=== PATIENT | male | born 1995 | race Two or more races ===

== ENCOUNTER 2020-01-13 18:10 | Observation (INO) | payer OTHER, SELFPAY ==
--- NOTE | ~2020-01-13 | CT_ITS ---
EXAMINATION: CT abdomen pelvis w con INDICATION: Abdominal pain and nausea TECHNIQUE: Computed tomographic images of the abdomen and pelvis were obtained after the administrati on of 100 cc of Omnipaque 350 intravenous contrast. The dose-length product (DLP) was 606.68 mGy-cm. Automated exposure control and iterative reconstruction technique were employed. COMPARISON: None available FINDINGS: The lung bases are clear. The heart size is normal. The liver, spleen, pancreas, gallbladde r, and adrenal glands are normal. The kidneys are unremarkable. The dilated appendix measures up to 1 0 mm. There is subtle edematous stranding of the periappendiceal fat. No pathologically enlarged abdo frances or pelvic lymph nodes are identified. There is no free intraperitoneal gas or evidence of bowel obstruction. There is a small volume of pelvic ascites. IMPRESSION: 1. Dilated appendix with subtle edematous stranding of the periappendiceal fat, likely early acute ap pendicitis. Recommend correlation for right lower quadrant tenderness. Reviewed, dictated and finalized at location A. IMPRESSION: 1. Dilated appendix with subtle edematous stranding of the periappendiceal fat, likely early acute appendicitis. Recommend correlation for right lower quadran t tenderness.
[2020-01-13 18:12] VITALS: BP 129/63; PULSE 89; RESP 18; TEMP 36.8; O2SAT 99
--- NOTE | 2020-01-13 18:29 | PC.NURSE ---
Pt states he had heartburn yesterday and today has had epigastric pain that pt describes as burning and squeezing sensation. Pt denied any change in pain with food and drink. Pt states he had some nausea today, denies any emesis. Denies any diarrhea. Pt had a BM today that was normal. Pt tender on exam in RLQ. Pt was at urgent care today and had GI cocktail and Famotidine given without any improvement in pain.
--- NOTE | 2020-01-13 18:29 | ED.ABDPAIN ---
HPI - Abdominal Pain General Chief Complaint: Abdominal Pain Stated Complaint: abd pain Time Seen by Provider: 01/13/20 18:22 Source: patient and RN notes reviewed Mode of arrival: ambulatory Limitations: no limitations History of Present Illness HPI narrative: Pt is a 24 y/o male who presents to the ED with c/o intermittent epigastric pain starting last night. He notes that he developed a burning pain in his epigastric region shortly after eating pizza for dinner last night. Pt notes that his pain later resolved, but states that it returned after eating a salad with cheese and tomatoes earlier today. He notes that he was evaluated at an urgent care facility for his symptoms this afternoon, but states that he wasn't satisfied with his care. Pt currently describes his pain as burning/squeezing. He reports nausea accompanying his pain, but denies any vomiting, fever, or back pain. Pt states that his last BM was around 15:00 this afternoon. MD elicited complaint: abdominal pain Onset (ago): day(s) (1) Pain Consistency: intermittent Location: epigastric Quality: burning and other (squeezing) Radiation: none Associated symptoms: nausea Related Data Home Medications Medication Instructions Recorded Confirmed No Home Medications 01/13/20 01/13/20 Allergies Allergy/AdvReac Type Severity Reaction Status Date / Time No Known Allergies Allergy Verified 01/13/20 21:50 Review of Systems Review of Systems: All systems reviewed & are unremarkable except as noted in HPI and below Constitutional: Constitutional: Denies fever(s) Gastrointestinal: Gastrointestinal: Reports abdominal pain (epigastric pain), Reports nausea and Denies vomiting Musculoskeletal: Musculoskeletal: Denies back pain PMFSH Past Medical History Medical History Healthy adult male Surgical History Surgical History (Updated 01/13/20 @ 18:41 by Rishi Murcia) No significant past surgical history Family History Family History (Updated 01/13/20 @ 21:50 by Marleen Lopes RN) Mother Asthma Social History Social History Years smoked: 11 Smoking status: Current every day smoker Tobacco type: cigarettes Alcohol intake: never Substance use: never Spiritual care concerns: No Agree to blood products: Yes Exam Narrative: Exam Narrative: GENERAL: Well-appearing, well-nourished, and in no acute distress. HEAD: Normocephalic, atraumatic EYES: PERRLA and EOMI, conjunctiva clear without discharge THROAT:Mucous membranes moist, Oropharynx normal without erythema, exudate, peritonsillar swelling or fluctuance NECK: Supple, without lymphadenopathy or mass RESPIRATORY: No respiratory distress, Airway patent, Respirations non-labored, Clear to auscultation without rales, rhonchi or wheeze HEART: Regular rate and rhythm. No murmur heard. Normal peripheral pulses. ABDOMEN: Soft, right lower abdominal tenderness, nondistended, normal active bowel sounds. No masses. No rebound or guarding, No organomegaly. EXTREMITIES: No edema, normal strength with full range of motion. SKIN: Warm, dry, normal color without rash NEURO: Alert and oriented x3. CN 2-12 grossly intact. No focal deficits. PSYCH: Normal mood and affect. Course Reevaluation(s) Reevaluation #1: I Discussed with patient his diagnosis of acute appendicitis and he understands he will be admitted with IV antibiotics and he will be seen by surgeon tomorrow. Date: 01/13/20 Time: 20:43 Consultations Consultation #1: Discussed case with general surgeon, Dr. Dolan. Advised to place the pt on Zosyn, analgesics, and he will see the pt tomorrow morning. Date: 01/13/20 Time: 20:27 Vital Signs Vital signs: Vital Signs Temperature 98.3 F 01/13/20 18:12 Pulse Rate 89 01/13/20 18:12 Respiratory Rate 18 01/13/20 18:12 Blood Pressure 129/63 01/13/20 18:12 Pulse Oximetry 99
[2020-01-13] MEDS: ONDANSETRON INJ 4 MG/2 ML VIAL IV PUSH (18:44)
[2020-01-13 18:49] VITALS: BP 128/82; PULSE 73; RESP 18; O2SAT 98
[2020-01-13 18:49] LABS: Basophils Percent Auto 0.2 % (0.2-1.2); Eosinophils Percent Auto 0.1 % (0-4.4); Hematocrit 41.1 % (42.0-52.0); Immature Granulocyte Absolute 0.05 K/mm3 (0.00-0.031); Immature Granulocyte Percent A 0.4 % (0-0.5); Lymphocytes Absolute Auto 0.87 K/mm3 (0.9-3.2); Lymphocytes Percent Auto 6.6 % (18.3-44.2); Mean Corpuscular HGB Conc 34.1 g/dl (32-36); Mean Corpuscular Hemoglobin 27.2 pg (26-34); Mean Corpuscular Volume 79.8 fl (80-100); Mean Platelet Volume 10.1 fl (7.4-10.4); Monocytes Absolute Auto 0.4 K/mm3 (0.1-0.6); Monocytes Percent Auto 2.9 % (2.6-8.5); Neutrophils Absolute Auto 11.9 K/mm3 (1.3-6.7); Neutrophils Percent Auto 89.8 % (45.5-73.1); Platelet Count Result 199 k/mm3 (150-375); Red Blood Count 5.15 M/mm3 (4.6-6.20); Red Cell Distribution Width 12.6 % (11.5-14.5); White Blood Count 13.2 K/mm3 (4.5-10.0)
[2020-01-13] MEDS: LACTATED RINGERS 1,000 ML 999 ML IV CONT (19:04)
[2020-01-13 19:08] LABS: Add Urine Microscopic? YES; Appearance Urine Clear (Clear); Bilirubin Urine Negative (Negative); Blood Urine 1+ (Negative); Color Urine Straw (Yellow); Glucose Urine UA Negative (Negative); Ketones Urine Negative (Negative); Leukocyte Esterase Ur Negative LEU/UL (Negative); Mucus Urine Rare /lpf; Nitrate Urine Negative (Negative); Protein Urine Negative (Negative); RBC Urine 0-2 /hpf (0-2); Specific Grav Ur 1.013 (1.001-1.035); Urobilinogen Urine Negative mg/dL (<2.0); WBC Urine 0-3 /hpf
[2020-01-13 19:25] LABS: Alanine Aminotransferase 24 U/L (4-50); Albumin Level 4.3 g/dL (3.5-5.1); Alkaline Phosphatase 48 U/L (38-126); Aspartate Amino Transferase 29 U/L (17-59); Bilirubin,Total 0.5 mg/dL (0.2-1.3); Blood Urea Nitrogen 10 mg/dL (9-20); Carbon Dioxide 29 mmol/L (22-30); Chloride 99 mmol/L (98-107); Estimated CRCL calculation 179 ml/min; Estimated Glomerular Filt Rate > 60; Glucose 123 mg/dL (75-110); Lipase 30 U/L (23-300); Potassium 3.8 mmol/L (3.4-5.0); Sodium 132 mmol/L (137-145)
[2020-01-13 20:04] VITALS: BP 126/72; PULSE 82; RESP 18; O2SAT 99
[2020-01-13 20:47] VITALS: BP 127/75; PULSE 85; RESP 16; TEMP 36.6; O2SAT 99
[2020-01-13 21:00] VITALS: BP 121/69; PULSE 73; RESP 16; TEMP 36.6; O2SAT 98
--- NOTE | 2020-01-13 21:00 | ADMGEN ---
This patient, Isidoro Ramírez, was admitted to 3 [facility] Surg Room 307-01. Patient/family oriented to hospital policies and general routines including ID bracelet, bed and alarms, visiting hours, pain management, procedures, bathroom and other care routines, personal items, smoking policy, room service/diet, and visiting hours. Valuables list has been completed. Information on how to activate the Rapid Response Team has been discussed. Patient/Family are encouraged to report perceived risks to care and to ask questions if they do not understand what they are told or what they should do.
[2020-01-13 21:15] VITALS: BMI 28.0
[2020-01-13] MEDS: LACTATED RINGERS 1,000 ML 125 ML IV CONT (21:21)
[2020-01-14] MEDS: LACTATED RINGERS 1,000 ML 125 ML IV CONT (05:33)
[2020-01-14 06:00] VITALS: BP 101/54; PULSE 70; RESP 16; TEMP 37; O2SAT 99
[2020-01-14 06:38] LABS: Basophils Percent Auto 0.2 % (0.2-1.2); Eosinophils Absolute Auto 0.1 K/mm3 (0-0.3); Hematocrit 40.4 % (42.0-52.0); Hemoglobin 13.4 g/dL (14.0-18.0); Immature Granulocyte Absolute 0.03 K/mm3 (0.00-0.031); Immature Granulocyte Percent A 0.4 % (0-0.5); Lymphocytes Absolute Auto 2.28 K/mm3 (0.9-3.2); Lymphocytes Percent Auto 27.1 % (18.3-44.2); Mean Corpuscular HGB Conc 33.2 g/dl (32-36); Mean Corpuscular Hemoglobin 27.1 pg (26-34); Mean Corpuscular Volume 81.6 fl (80-100); Mean Platelet Volume 10.2 fl (7.4-10.4); Monocytes Absolute Auto 0.6 K/mm3 (0.1-0.6); Neutrophils Absolute Auto 5.4 K/mm3 (1.3-6.7); Neutrophils Percent Auto 64.3 % (45.5-73.1); Platelet Count Result 195 k/mm3 (150-375); Red Blood Count 4.95 M/mm3 (4.6-6.20); Red Cell Distribution Width 12.6 % (11.5-14.5); White Blood Count 8.4 K/mm3 (4.5-10.0)
[2020-01-14 06:48] LABS: Alanine Aminotransferase 22 U/L (4-50); Albumin Level 3.8 g/dL (3.5-5.1); Alkaline Phosphatase 45 U/L (38-126); Aspartate Amino Transferase 25 U/L (17-59); Bilirubin,Total 0.6 mg/dL (0.2-1.3); Blood Urea Nitrogen 8 mg/dL (9-20); Calcium 8.6 mg/dL (8.4-10.2); Carbon Dioxide 31 mmol/L (22-30); Chloride 102 mmol/L (98-107); Estimated CRCL calculation 156 ml/min; Estimated Glomerular Filt Rate > 60; Glucose 87 mg/dL (75-110); Potassium 3.6 mmol/L (3.4-5.0); Sodium 139 mmol/L (137-145)
--- NOTE | 2020-01-14 08:30 | PM.IMHP ---
H&P: HPI History of Present Illness Chief complaint: acute appendicitis Narrative: Isidoro Ramírez is a 24 year old male who noticed some heartburn after eating pizza the night before last. This went away but then yesterday morning he had a salad with some cheese and noticed some epigastric and hypogastric abdominal pain. This did not go away. He went to an urgent care and was told he had indigestion. His pain however got worse and moved to more of the central abdomen and lower than before. He went to the emergency room where he was [place] [id number]. He was tender in the right lower quadrant. He had a CT scan of the abdomen and pelvis that showed a 10 mm appendix with some periappendiceal stranding consistent with early acute appendicitis. The patient is been admitted and started on IV Zosyn antibiotics. He has been getting some analgesics. He does feel better this morning but still has intermittent pain now in the right lower quadrant with tenderness there. He has had no nausea or vomiting. Review of Systems Review of Systems: All systems reviewed & are unremarkable except as noted in HPI and below Constitutional: Constitutional: Denies headache(s) ENT: Denies headache(s) Cardiovascular: Cardiovascular: Denies chest pain and Denies dyspnea Respiratory: Respiratory: Denies cough and Denies dyspnea Gastrointestinal: Gastrointestinal: Reports as per HPI Neurologic: Denies confusion and Denies headache(s) Psychiatric: Psychiatric: Denies confusion [facility] Past Medical History Medical History Healthy adult male Surgical History Surgical History No significant past surgical history Family History Family History Mother Asthma Social History Social History Years smoked: 11 Smoking status: Current every day smoker Tobacco type: cigarettes Alcohol intake: never Substance use: never Spiritual care concerns: No Agree to blood products: Yes Meds Home Medications and Allergies Home Medications Medication Instructions Recorded Confirmed Type No Home Medications 01/13/20 01/13/20 History Allergies Allergy/AdvReac Type Severity Reaction Status Date / Time No Known Allergies Allergy Verified 01/13/20 21:50 Vital Signs Vital Signs - 24 hr 01/13/20 18:12 01/13/20 18:49 01/13/20 20:04 Temperature 36.8 C Pulse Rate 89 73 82 Respiratory Rate 18 18 18 Blood Pressure 129/63 128/82 126/72 Pulse Oximetry 99 98 99 01/13/20 20:47 01/13/20 21:00 01/14/20 06:00 Temperature 36.6 C 36.6 C 37.0 C Pulse Rate 85 73 70 Respiratory Rate 16 16 16 Blood Pressure 127/75 121/69 101/54 L Pulse Oximetry 99 98 99 Exam Const: General: cooperative, comfortable, no acute distress, alert and awake; No confusion Orientation/consciousness: No confusion HENMT: Head: normocephalic, atraumatic, no contusions and no scalp lesions Ears: external ears normal General nose exam: Normal external nose present Face and sinus: face symmetric and dry mucous membranes Mouth: Yes Normal oral and palatal mucosa present and Yes tongue normal Throat: posterior oropharynx normal Eyes: Conjunctivae: conjunctivae normal Sclera: sclerae normal Pupils: Equal, round and reactive pupils present EOM: EOMs intact bilaterally Neck: Neck: normal visual inspection, no lymphadenopathy, trachea midline, supple, nontender and no JVD Thyroid: abnormal thyroid Resp: Effort & Inspection: normal respiratory effort Auscultation: clear to auscultation bilaterally Cardio: Rate: regular rate Rhythm: regular rhythm GI: Inspection: normal to inspection, non-distended and no incisions GI Palp: Yes Soft to palpation, Yes Tenderness to palpation present (GI) (Right lower quadrant ov
--- NOTE | 2020-01-14 08:34 | PM.PROC ---
Procedure Note - Detailed Date of procedure: 01/14/20 Pre-op diagnosis: acute appendicitis acute appendicitis Post-op diagnosis: same Procedure performed: Laparoscopic appendectomy Description of procedure: The patient was taken to surgery and induced into general anesthesia. The abdomen was prepped and draped. Trocars were placed in the usual fashion using 0.5% Marcaine with epinephrine and applied Medical optical trocars. A 5 mm camera was used. The patient was placed in Trendelenburg with the right side elevated. The appendix was found and was elevated anteriorly. Dissection was carried out in the mesoappendix. The mesoappendix was dissectedand the appendiceal vessels cauterized for hemostasis. Eventually the base of the appendix was skeletonized. The appendix was ligated at its base with a Vicryl endo-loop. It was amputated just above the ligature and the mucosa of the appendiceal stump was cauterized. The appendix was immediately placed in an Endo-Catch bag and retrieved through the 10 11 left lower quadrant trocar site. We replaced the 10 11 trocar and reviewed the right lower quadrant and areas of dissection. All looked good with no evidence of bleeding or other problems. We evacuated CO2 and removed the trocar sleeves. Skin wounds were closed with subcuticular 4 O Monocryl skin suture. The wounds were dressed with Exofin surgical adhesive. The patient was awakened and taken to recovery in good condition. Sponge and needle counts were correct x2. Anesthesia: GETA and local (0.5% Marcaine with epinephrine) Surgeon: Hi Dolan MD Physical Therapy Assistant Instructor: Candi REES Estimated blood loss (mL): 5 Drains: No Packing: No Pathology: yes (Appendix) Complications: None Condition: stable Disposition: PACU Findings: Acute non perforated appendicitis
--- NOTE | 2020-01-14 09:13 | WPDANESEPPF ---
Anes - Initial Pre Proc Eval Procedure: Operation Date: 01/14/20 09:00 Proposed Procedures p Laparoscopic Appendectomy - Hi Dolan MD Date/Time: 01/14/20 09:13 Surgeon: Hi Dolan MD Pre Op Diagnosis: acute appendicitis Patient Data Age: 24 Gender: M Height: 6 ft 1 in Weight: 96.3 kg Last Vital Signs Temp 37.0 C 01/14/20 06:00 Pulse 70 01/14/20 06:00 Resp 16 01/14/20 06:00 BP 101/54 L 01/14/20 06:00 Pulse Ox 99 01/14/20 06:00 Allergies Allergy/AdvReac Type Severity Reaction Status Date / Time No Known Allergies Allergy Verified 01/13/20 21:50 Home Medications Medication Instructions Recorded Confirmed Type No Home Medications 01/13/20 01/13/20 History hydrocodone-acetaminophen 1 - 2 tablet PO Q6H PRN #7 tablet 01/14/20 Rx Laboratory Tests 01/13/20 01/13/20 01/13/20 18:40 18:41 19:05 WBC 13.2 K/mm3 H K/mm3 (4.5-10.0) RBC 5.15 M/mm3 M/mm3 (4.6-6.20) Hgb 14.0 g/dL g/dL (14.0-18.0) Hct 41.1 % L % (42.0-52.0) MCV 79.8 fl L fl (80-100) MCH 27.2 pg pg (26-34) MCHC 34.1 g/dl g/dl (32-36) RDW 12.6 % % (11.5-14.5) Plt Count 199 k/mm3 k/mm3 (150-375) MPV 10.1 fl fl (7.4-10.4) Immature Gran % (Auto) 0.4 % % (0-0.5) Neut % (Auto) 89.8 % H % (45.5-73.1) Lymph % (Auto) 6.6 % L % (18.3-44.2) [place] % (Auto) 2.9 % % (2.6-8.5) Eos % (Auto) 0.1 % % (0-4.4) Baso % (Auto) 0.2 % % (0.2-1.2) Lymph # (Auto) 0.87 K/mm3 L K/mm3 (0.9-3.2) [place] # (Auto) 0.4 K/mm3 K/mm3 (0.1-0.6) Eos # (Auto) 0.0 K/mm3 K/mm3 (0-0.3) Baso # (Auto) 0.0 K/mm3 K/mm3 (0.0-0.1) Abs Immat Gran (auto) 0.05 K/mm3 H K/mm3 (0.00-0.031) Absolute Neuts (auto) 11.9 K/mm3 H K/mm3 (1.3-6.7) Absolute Nucleated RBC 0.0 K/mm3 K/mm3 (0.0-0.012) Nucleated RBC % 0.0 % % (0.0-0.2) Sodium 132 mmol/L L mmol/L (137-145) Potassium 3.8 mmol/L mmol/L (3.4-5.0) Chloride 99 mmol/L mmol/L (98-107) Carbon Dioxide 29 mmol/L mmol/L (22-30) BUN 10 mg/dL mg/dL (9-20) Creatinine 0.60 mg/dL L mg/dL (0.7-1.3) Estim Creat Clear Calc 179 ml/min ml/min Estimated GFR > 60 (59 - ) Glucose 123 mg/dL H mg/dL (75-110) Calcium 9.0 mg/dL mg/dL (8.4-10.2) Total Bilirubin 0.5 mg/dL mg/dL (0.2-1.3) AST 29 U/L U/L (17-59) ALT 24 U/L U/L (4-50) Alkaline Phosphatase 48 U/L U/L (38-126) Total Protein 7.0 g/dL g/dL (6.3-8.2) Albumin 4.3 g/dL g/dL (3.5-5.1) Lipase 30 U/L U/L (23-300) Urine Color Straw (Yellow) Urine Appearance Clear (Clear) Urine pH 6.0 (5.0-9.0) Ur Specific [place] 1.013 (1.001-1.035) Urine Protein Negative mg/dL mg/dL (Negative) Urine Glucose (UA) Negative mg/dL mg/dL (Negative) Urine Ketones Negative mg/dL mg/dL (Negative) Ur Blood (Man) 1+ H (Negative) Urine Nitrate Negative (Negative) Urine Bilirubin Negative (Negative) Urine Urobilinogen Negative mg/dL mg/dL (<2.0) Leukocyte Esterase Rfl Negative TAYLER/UL TAYLER/UL (Negative) Urine RBC 0-2 /hpf /hpf (0-2) Urine WBC 0-3 /hpf /hpf Urine Mucus Rare /lpf /lpf 01/14/20 01/14/20 05:48 05:48 WBC 8.4 K/mm3 K/mm3 (4.5-10.0) RBC 4.95 M/mm3 M/mm3 (4.6-6.20) Hgb 13.4 g/dL L g/dL (14.0-18.0) Hct 40.4 % L % (42.0-52.0) MCV 81.6 fl fl (80-100) MCH 27.1 pg pg (26-34) MCHC 33.2 g/dl g/dl (32-36) RDW 12.6 % % (11.5-14.5) Plt Count 195 k/mm3 k/mm3 (150-375) MPV 10.2
[2020-01-14] MEDS: LACTATED RINGERS 1,000 ML 30 ML IV CONT ×2 (09:15→10:08)
[2020-01-14] MEDS: BUPIVACAINE/EPINEPHRINE 0.5% 30 ML VIAL INFILTRATE (09:46)
[2020-01-14 10:08] VITALS: BP 120/70; PULSE 58; RESP 19; TEMP 37; O2SAT 100
--- NOTE | 2020-01-14 10:09 | PM.DS ---
DS: Diagnosis Admitting Diagnosis Admitting Diagnosis: Unspecified acute appendicitis Discharge Diagnosis (1) Acute appendicitis: Qualifiers: Acute appendicitis type: unspecified acute appendicitis type Qualified Code(s): K35.80 - Unspecified acute appendicitis Code(s): K35.80 - Unspecified acute appendicitis Status: Acute (2) Smoker: Code(s): F17.200 - Nicotine dependence, unspecified, uncomplicated Status: Acute DS: Summary Time Spent with Patient Time attestation: Total time spent providing and/or coordinating discharge services: Patient came to the emergency room with upper abdominal pain. He had an elevated white count and tenderness in the right lower quadrant. CT showed acute appendicitis. After observation overnight, he was having right lower quadrant pain with tenderness and guarding. He was taken to surgery on 01/14/2020 and laparoscopic appendectomy was performed. It appeared he had early acute appendicitis. The patient was able to be discharged later in the day on 01/14/2020 in good condition. DS: Data Data Completed and Pending Pending studies at discharge: Pending at discharge 01/14/20 09:45 Surgical [PTH] Routine Labs on day of discharge: Labs from last 24 hours 01/14/20 01/14/20 01/13/20 05:48 05:48 19:05 WBC 8.4 RBC 4.95 Hgb 13.4 L Hct 40.4 L MCV 81.6 MCH 27.1 MCHC 33.2 RDW 12.6 Plt Count 195 MPV 10.2 Immature Gran % (Auto) 0.4 Neut % (Auto) 64.3 Lymph % (Auto) 27.1 [place] % (Auto) 7.0 Eos % (Auto) 1.0 Baso % (Auto) 0.2 Lymph # (Auto) 2.28 [place] # (Auto) 0.6 Eos # (Auto) 0.1 Baso # (Auto) 0.0 Abs Immat Gran (auto) 0.03 Absolute Neuts (auto) 5.4 Absolute Nucleated RBC 0.0 Nucleated RBC % 0.0 Sodium 139 132 L Potassium 3.6 3.8 Chloride 102 99 Carbon Dioxide 31 H 29 BUN 8 L 10 Creatinine 0.70 0.60 L Estim Creat Clear Calc 156 179 Estimated GFR > 60 > 60 Glucose 87 123 H Calcium 8.6 9.0 Total Bilirubin 0.6 0.5 AST 25 29 ALT 22 24 Alkaline Phosphatase 45 48 Total Protein 6.0 L 7.0 Albumin 3.8 4.3 Lipase 30 Urine Color Urine Appearance Urine pH Ur Specific [place] Urine Protein Urine Glucose (UA) Urine Ketones Ur Blood (Man) Urine Nitrate Urine Bilirubin Urine Urobilinogen Leukocyte Esterase Rfl Urine RBC Urine WBC Urine Mucus 01/13/20 01/13/20 18:41 18:40 WBC 13.2 H RBC 5.15 Hgb 14.0 Hct 41.1 L MCV 79.8 L MCH 27.2 MCHC 34.1 RDW 12.6 Plt Count 199 MPV 10.1 Immature Gran % (Auto) 0.4 Neut % (Auto) 89.8 H Lymph % (Auto) 6.6 L [place] % (Auto) 2.9 Eos % (Auto) 0.1 Baso % (Auto) 0.2 Lymph # (Auto) 0.87 L [place] # (Auto) 0.4 Eos # (Auto) 0.0 Baso # (Auto) 0.0 Abs Immat Gran (auto) 0.05 H Absolute Neuts (auto) 11.9 H Absolute Nucleated RBC 0.0 Nucleated RBC % 0.0 Sodium Potassium Chloride Carbon Dioxide BUN Creatinine Estim Creat Clear Calc Estimated GFR Glucose Calcium Total Bilirubin AST ALT Alkaline Phosphatase Total Protein Albumin Lipase Urine Color Straw Urine Appearance Clear Urine pH 6.0 Ur Specific [place] 1.013 Urine Protein Negative Urine Glucose (UA) Negative Urine Ketones Negative Ur Blood (Man) 1+ H Urine Nitrate Negative Urine Bilirubin Negative Urine Urobilinogen Negative Leukocyte Esterase Rfl Negative Urine RBC 0-2 Urine WBC 0-3 Urine Mucus Rare Discharge Plan Discharge Attending physician on discharge: Hi Dolan Discharging Clinician: Hi Dolan Anticipated Discharge Date/Time: 01/14/20 16:00 Patient Disposition: Home, Self-Care Activity: may shower, no straining and as tolerated Diet: as tolerated, regular and bland Wound Care Instructions: incision open to air Discharg
[2020-01-14 10:25] VITALS: BP 116/71; PULSE 57; RESP 17; O2SAT 100
[2020-01-14 10:40] VITALS: BP 122/75; PULSE 78; RESP 12; O2SAT 98
[2020-01-14 10:59] VITALS: BP 123/71; PULSE 62; RESP 16; O2SAT 97
[2020-01-14] MEDS: LACTATED RINGERS 1,000 ML 100 ML IV CONT (11:05)
[2020-01-14] MEDS: MORPHINE SULFATE 2 MG/ML INJ IV PUSH (13:06)
[2020-01-14 14:00] VITALS: BP 120/71; PULSE 63; RESP 18; TEMP 36.8; O2SAT 99
--- NOTE | 2020-01-14 17:44 | PC.NURSE ---
Patient discharged @1710. Patient transported home by family. IV line removed, belongings list verified, wallet removed from safe and returned to the patient, prescriptions sent home with patient.
== END 2020-01-14 17:10 | disposition home or self-care (01) ==
LOC: ANHED 20:44 → ANH3MEDSUR 20:45
PROVIDERS: Admitting Provider Surgery; Emergency Provider General Practice; Visit Provider Surgery
PROC: 0DTJ4ZZ Resection of Appendix, Percutaneous Endoscopic Approach (ICD-10-PCS; CPT 44970; principal; 2020-01-14 09:00)
DX: K35.30 Acute appendicitis with localized peritonitis, without perforation or gangrene (principal); F17.210 Nicotine dependence, cigarettes, uncomplicated
CPT/HCPCS: 44970; 36415; 74177; 80053; 81001; 83690; 85025; 88304; 96361; 96365; 96375; 99285; A9270; G0378; J0131; J0330; J2250; J2270; J2405; J2543; J2704; J2710; J3010; J7120; Q9967